=== PATIENT | male | born 1995 | race Caucasian/White ===

== ENCOUNTER 2017-12-13 20:01 | Emergency (ER) | payer MEDICAID ==
[~2017-12-13] VITALS: Ht 185.4 cm; Wt 96.6 kg
[2017-12-13 20:02] VITALS: Ht 185.4 cm; Wt 96.6 kg
[2017-12-13 22:25] VITALS: BP 122/70
== END 2017-12-13 22:25 | disposition home or self-care (01) ==
LOC: ED 20:01
DX: J45.909 Unspecified asthma, uncomplicated (principal); F17.200 Nicotine dependence, unspecified, uncomplicated; Z71.6 Tobacco abuse counseling
CPT/HCPCS: 99406